=== PATIENT | male | born 1980 | race Caucasian/White ===

== ENCOUNTER 2016-11-16 10:49 | Emergency (ER) | payer SELFPAY ==
[~2016-11-16] VITALS: Ht 170.2 cm; Wt 109.4 kg
[2016-11-16 11:06] VITALS: BP 149/94
--- NOTE | 2016-11-16 12:44 | NUR ---
Patient ambulated to bed 7 with family. RN evaluating patient at bedside.
--- NOTE | 2016-11-16 12:47 | NUR ---
36/M c/o dizziness since last Friday. Pt states "I feel good. I don't have pain. But when I bend over or last night when I turned in bed, I got very dizzy and had nausea." Pt states he went to see his PMD and was prescribed medication for dizziness but states "I still feel the same." Denies LOC. Denies syncope. Denies fever or chills. Denies vomiting or diarrhea. AOX4, clear speech, tankerman and pushes strong and equal bilterally. CMS intact.
--- NOTE | 2016-11-16 13:09 | NUR ---
Dr. Maciel evaluating patient at bedside.
[2016-11-16 13:40] VITALS: BP 132/83
--- NOTE | 2016-11-16 13:41 | NUR ---
Patient discharged with v/s stable. Written and verbal after care instructions given and explained. Patient verbalized understanding. Ambulatory with steady gait. All questions addressed prior to discharge. Advised to follow up with PMD.
== END 2016-11-16 13:41 | disposition home or self-care (01) ==
LOC: MED 10:49
DX: R42 Dizziness and giddiness (principal); Z87.891 Personal history of nicotine dependence
CPT/HCPCS: 99283